=== PATIENT | female | born 1980 | race American Indian/Alaskan Native ===

== ENCOUNTER 2017-12-08 23:37 | Emergency (ER) | payer OTHER ==
[2017-12-08 23:59] VITALS: BMI 44.1
--- NOTE | 2017-12-09 01:35 | PDOC ---
History of Present Illness - General Chief Complaint: Pain Stated Complaint: PAIN Time Seen by Provider: 12/09/17 01:33 History Source: Patient - History of Present Illness Initial Comments: 12/09/17 02:07 37 year old female with generalized bodyaches. denies fever/ chills, NVD, Abdominal pain, chest pain. patient has a past medical history of RA, SLE, prediabetes and hypertension. 12/09/17 03:45 Past History - Past Medical History Allergies/Adverse Reactions: Allergies Allergy/AdvReac Type Severity Reaction Status Date / Time No Known Drug Allergies Allergy Verified 12/08/17 23:56 Home Medications: Ambulatory Orders Cholecalciferol (Vitamin D3) [Vitamin D] 50,000 unit PO WEEKLY 05/28/16 Levothyroxine [Synthroid -] 25 mcg PO DAILY 05/28/16 Losartan Potassium [Cozaar -] 25 mg PO DAILY 05/28/16 Oxycodone HCl/Acetaminophen [Percocet 5-325 mg Tablet] 1 tab PO Q6H PRN #30 tablet MDD 4 05/29/16 Anemia: No Asthma: No Cancer: No Cardiac Disorders: No CVA: No COPD: No CHF: No Dementia: No Diabetes: Yes (Pre-diabetic) GI Disorders: No Disorders: Yes (PCOS) HTN: Yes Hypercholesterolemia: No Liver Disease: No Seizures: No Thyroid Disease: No Other medical history: Lupus, RA, Job's syndrome - Surgical History Cholecystectomy: Yes - Suicide/Smoking/Psychosocial Hx Smoking History: Current some day smoker Have you smoked in the past 12 months: Yes Number of Cigarettes Smoked Daily: 2 Information on smoking cessation initiated: No 'Breaking Loose' booklet given: 05/29/16 Hx Alcohol Use: No Drug/Substance Use Hx: No Substance Use Type: None Review of Systems - Review of Systems Able to Perform ROS?: Yes Is the patient limited Sudanese proficient: No Constitutional: No: Symptoms Reported, See HPI, Chills, Diaphoresis, Fever, Loss of Appetite, Malaise, Night Sweats, Weakness, Weight Stable, Unintentional Wgt. Loss, Unexplained wgt Loss, Other *Physical Exam - Vital Signs Last Vital Signs Temp Pulse Resp BP Pulse Ox 99.1 F 84 20 147/99 99 12/08/17 23:56 12/08/17 23:56 12/08/17 23:56 12/08/17 23:56 12/08/17 23:56 - Physical Exam General Appearance: Yes: Appropriately Dressed Respiratory/Chest: positive: Lungs Clear, Normal Breath Sounds Gastrointestinal/Abdominal: positive: Normal Bowel Sounds, Soft Musculoskeletal: positive: Normal Inspection Extremity: positive: Normal Inspection, Normal Range of Motion ED Treatment Course - LABORATORY CBC & Chemistry Diagram: 12/09/17 02:10 12/09/17 02:10 Progress Note - Progress Note Progress Note: A: generalized bodyache *DC/Admit/Observation/Transfer Diagnosis at time of Disposition: Body aches Arthralgia Qualifiers: Joint pain location: unspecified Qualified Code(s): M25.50 - Pain in unspecified joint - Discharge Dispostion Disposition: HOME - Referrals Referrals: Seema Farris MD [Primary Care Provider] - Call tomorrow - Patient Instructions Printed Discharge Instructions: DI for Arthralgia Additional Instructions: take ibuprofen every 6 hours as needed for pain. follow up wiht your doctor as soon as possible. - Post Discharge Activity
[2017-12-09] MEDS ORDERED: KETOROLAC TROMETHAMINE 30 MG/1 ML VIAL IVPUSH ONE (02:03)
[2017-12-09] MEDS ORDERED: KETOROLAC TROMETHAMINE 30 MG/1 ML VIAL ONE (02:18)
[2017-12-09 02:20] LABS: HEMATOCRIT 42.1 % (32.4-45.2); HEMOGLOBIN 14.1 GM/dL (10.7-15.3); MCH 28.4 pg (25.7-33.7); MCHC 33.5 g/dl (32.0-36.0); MEAN PLT VOLUME 8.1 fl (7.5-11.1); PLATELET COUNT 223 K/MM3 (134-434); RBC 4.96 M/mm3 (3.60-5.2); RDW 13.3 % (11.6-15.6); WHITE BLOOD COUNT 7.9 K/mm3 (4.0-10.0)
[2017-12-09 02:42] LABS: ALBUMIN 3.6 g/dl (3.4-5.0); ALK PHOS 75 U/L (45-117); ANION GAP 6 (8-16); BILIRUBIN,TOTAL 0.6 mg/dL (0.2-1.0); BLOOD UREA NITROGEN 10 mg/dL (7-18); CALCIUM 8.6 mg/dL (8.5-10.1); CHLORIDE 103 mmol/L (98-107); CO2 29 mmol/L (21-32); CREATININE 0.8 mg/dL (0.55-1.02); GLUCOSE,RANDOM 124 mg/dL (74-106); POTASSIUM 3.5 mmol/L (3.5-5.1); SGOT/AST 27 U/L (15-37); SGPT/ALT 28 U/L (12-78); SODIUM 138 mmol/L (136-145); TOT PROT 8.6 g/dl (6.4-8.2)
[2017-12-09 04:31] VITALS: BP 131/78; PULSE 82; TEMP 98.1
== END 2017-12-09 04:30 | disposition home or self-care (01) ==
LOC: JER 23:37
PROC: 3E0333Z Introduction of Anti-inflammatory into Peripheral Vein, Percutaneous Approach (ICD-10-PCS; principal; 2017-12-08)
DX: M25.50 Pain in unspecified joint (principal); M06.89 Other specified rheumatoid arthritis, multiple sites; I10 Essential (primary) hypertension; M32.9 Systemic lupus erythematosus, unspecified; R73.03 Prediabetes; D71 Functional disorders of polymorphonuclear neutrophils
CPT/HCPCS: 36415; 80053; 84703; 85025; 85651; 86140; 96374; 99283-25